=== PATIENT | male | born 1950 | race Caucasian/White ===

== ENCOUNTER 2018-10-15 11:10 | Outpatient (CLI) | payer MEDICARE, BC ==
--- NOTE | 2018-10-15 12:16 | RAD ---
TWO VIEWS CHEST: Comparison: 09-03-18 History: Dyspnea. FINDINGS: Two views of the chest show normal sized cardiomediastinal silhouette. There is no evidence of consol idation, mass, or pleural effusion. Degenerative changes are seen in the spine. IMPRESSION: No evidence of acute cardiopulmonary disease. POS: [facility]
== END 2018-10-15 11:11 | disposition home or self-care (01) ==
LOC: RAD 11:10
PROVIDERS: ATTEND Internal Medicine Critical Care Medicine
DX: R06.00 Dyspnea, unspecified (principal)
CPT/HCPCS: 71046

== ENCOUNTER 2019-02-19 08:55 | Outpatient (CLI) | payer MEDICARE, BC | END 2019-02-19 08:56 | disposition home or self-care (01) | LOC: CP 08:55 | PROVIDERS: ATTEND Internal Medicine Critical Care Medicine | DX: J44.9 Chronic obstructive pulmonary disease, unspecified (principal) | CPT/HCPCS: 94060; 94727; 94729 ==

== ENCOUNTER 2019-04-22 10:03 | Day surgery (SDC) | payer MEDICARE, BC ==
[2019-04-22] MEDS ORDERED: Lidocaine 1% PF 5 ML VIAL ONE ×2 (10:40→11:17)
[2019-04-22] MEDS ORDERED: PROPOFOL 200 MG/20 ML VIAL ONE (11:17)
[2019-04-22] MEDS ORDERED: ePHEDrine 50 MG/ML VIAL ONE (11:17)
[2019-04-22] MEDS ORDERED: Ondansetron PF 4 MG/2 ML Vial ONE (11:17)
[2019-04-22] MEDS ORDERED: Dexamethasone 20 MG/5 ML VIAL ONE (11:17)
--- NOTE | 2019-04-22 11:27 | RAD ---
XR Finger(s) Lt Min 2 View HISTORY: Injury to little finger. COMPARISON: None. FINDINGS: There is a small avulsion fracture along the more radial and volar side of the base of the distal phalanx of the little finger. IMPRESSION: Small avulsion fracture of base of distal phalanx.
[2019-04-22] MEDS ORDERED: CEFAZOLIN 1 GM VIAL ONE (12:14)
[2019-04-22 13:14] LABS: #Basophils 0.1 thou/uL (0.0-0.2); #Eosinphils 0.1 thou/uL (0.0-0.7); #Lymphocytes 1.9 thou/uL (1.20-3.40); #Monocytes 0.5 thou/uL (0.11-0.59); #Neutrophils 5.2 thou/uL (1.40-6.50); %Basophils 0.8 % (0.0-1.0); %Eosinophils 1.4 % (0.0-10.0); %Lymphocytes 24.4 % (21.0-51.0); %Monocytes 5.9 % (0.0-10.0); %Neutrophils 67.5 % (42.0-75.0); Hemoglobin 15.5 g/dL (14.0-18.0); Mean Corpuscular HGB CONC 32.8 g/dL (32.0-36.0); Mean Corpuscular Hemoglobin 29.3 pg (27.0-31.0); Mean Corpuscular Volume 89.4 fL (78.0-98.0); Platelet Count 241 thou/uL (130-400); RBC Distribution Width 13.2 % (11.5-14.5); Red Blood Cell (RBC) Count 5.28 mill/uL (4.70-6.10); White Blood Cell (WBC) Count 7.8 thou/uL (4.8-10.8)
[2019-04-22 13:25] LABS: ALT (SGPT) 19 U/L (8-55); AST (SGOT) 13 U/L (5-34); Albumin 4.3 g/dL (3.4-4.8); Alkaline Phosphatase 64 U/L (40-110); Anion Gap 16 mmol/L (10-20); BUN (Urea Nitrogen) 14 mg/dL (8.4-25.7); Bilirubin, Total 0.3 mg/dL (0.2-1.2); Calc. Creatinine Clearance 0 mL/min (70-130); Calcium 9.5 mg/dL (7.8-10.44); Carbon Dioxide 22 mmol/L (23-31); Chloride 103 mmol/L (98-107); Estimated GFR-MDRD 67; Globulin 3.2 g/dL (2.4-3.5); Glucose 169 mg/dL (80-115); Potassium 4.2 mmol/L (3.5-5.1); Protein, Total 7.5 g/dL (5.8-8.1); Sodium 137 mmol/L (136-145)
[2019-04-22] MEDS ORDERED: Metoprolol Tartrate 5 MG/5 ML VIAL ONE ×2 (17:46→20:34)
[2019-04-22] MEDS ORDERED: Bacitracin Zinc Ointment 30 gm TUBE ONE (18:07)
[2019-04-22] MEDS ORDERED: Sodium Chloride 0.9% 10 ML ONE (18:07)
[2019-04-22] MEDS ORDERED: Bupivacaine PF 0.5% 30 ML VIAL ONE (18:07)
[2019-04-22] MEDS ORDERED: Betamet Acet/Betamet Na Ph 30 MG/5 ML VIAL ONE (18:07)
[2019-04-22] MEDS ORDERED: Sodium Chloride 0.9% 20 ML ONE (19:03)
[2019-04-22] MEDS ORDERED: Fentanyl 100 MCG/2 ML VIAL ONE (19:10)
--- NOTE | 2019-04-22 20:22 | RAD ---
XR Finger(s) Lt Min 2 View History: Pinning of left finger Comparison: Finger radiograph same day Findings: 2 spot fluoroscopic images were obtained from the operating room. Percutaneous pin placemen t through the distal interphalangeal joint small finger. Impression: Fluoroscopy for surgical use. Total fluoroscopy time: 13 seconds.
[2019-04-22] MEDS ORDERED: Ketorolac Tromethamine 30 MG/ML VIAL ONE (21:06)
--- NOTE | 2019-04-23 10:02 | OP ---
DATE OF PROCEDURE: 04/22/2019 COMPLICATIONS: None. TOURNIQUET TIME: 20 minutes. PREOPERATIVE DIAGNOSES: 1. open distal phalanx base fracture. 2. 1.0 cm laceration. POSTOPERATIVE DIAGNOSES: 1. open distal phalanx base fracture. 2. 1.0 cm laceration. 3. Intact neurovascular bundles x2, with neuroplasty and no direct communication seen with no violation of volar plate or collateral ligaments of the volar wound. COMPLICATIONS: None. PROCEDURES PERFORMED: 1. Debridement of material associated with open fracture of left small finger associated with open fracture, left small finger distal phalanx. 2. Small finger wound closure, 1.0 cm with debridement. 3. Open reduction with pinning, distal phalanx fracture. 4. Neuroplasty, digital nerves x2 under magnification. 5. C-arm. DESCRIPTION OF PROCEDURE: After successful anesthesia by [facility], the limb prepped and draped. We gave the patient a total of 20 mL of 0.5% Marcaine, 15 before the procedure and 5 after the procedure in metacarpophalangeal joint level block, left, small finger. We then exsanguinated the limb, inflated the tourniquet to 250 mmHg, extended the incision 1.0 cm distal and 1.5 cm proximal in Óscar-type fashion. This allowed us to do neuroplasty, explored the neurovascular bundle and found they were both intact bilaterally which confirmed the exam preop where he had intact 2-point discrimination, but we saw few granules of dirt on each end of the incision and space. We debrided this easily, and using combination of Williams blade, tenotomy scissors, large curette, small Crile, and Adsons, and this followed by the need for Pulsavac. The depth was down to include the volar plate, but we saw no violation of the visible bone itself and flexor tendon was intact. After the irrigation particles were removed, we then prepared the wound by debriding the edges of the wound to open incision at its distal base and its proximal base to the point of approximately 0.5 mm with tenotomy scissors. Now there was no debris seen under magnification. We irrigated last with additional 1 L normal saline, this time with bulb syringe with antibiotics inside, released the tourniquet and obtained hemostasis. Then, as the A1 aldo and flexor tendon were intact, we did not have to do flexor tendon repair or an extensor repair but we did pin the fracture under C-arm supervision in antegrade fashion with appropriate amount of accuracy. Wire was obliquely passed across from proximal to distal and was in excellent position, frontal saggital plane, and fracture was totally mobilized and being anatomic, the joint was free to move 45 degrees passing flexor. At this point, the tourniquet had been released. We then obtained hemostasis, loosely approximated the 1 cm wound, which was 1 incision in center and closed to appropriate specification of the incision we made. The patient then had a bulky dressing applied after giving last 5 mL metacarpophalangeal joint block level at small finger, and he left the operating room in a bulky dressing with a dorsal splint including the ring or small finger. No evidence of anesthetic or operative complications. Job ID: [id number]
== END 2019-04-22 21:57 | disposition home or self-care (01) ==
LOC: SCSER 10:03 → SDC 15:00 → SDC/OP 17:37
PROVIDERS: ATTEND Orthopaedic Surgery Hand Surgery
PROC: 0PSV04Z Reposition Left Finger Phalanx with Internal Fixation Device, Open Approach (ICD-10-PCS; principal; 2019-04-22)
DX: S62.637B Displaced fracture of distal phalanx of left little finger, initial encounter for open fracture (principal); I25.10 Atherosclerotic heart disease of native coronary artery without angina pectoris; E11.9 Type 2 diabetes mellitus without complications; F17.210 Nicotine dependence, cigarettes, uncomplicated; Z79.02 Long term (current) use of antithrombotics/antiplatelets; Z79.84 Long term (current) use of oral hypoglycemic drugs; Z79.899 Other long term (current) drug therapy; Z95.5 Presence of coronary angioplasty implant and graft; W23.1XXA Caught, crushed, jammed, or pinched between stationary objects, initial encounter
CPT/HCPCS: 36415; 76000; 80053; 85025; 85610; 93005; J0690; J0702; J1885; J2001; J3010; J3490; S0020

== ENCOUNTER 2019-10-20 15:21 | Outpatient (CLI) | payer MEDICARE, BC ==
--- NOTE | 2019-10-20 15:55 | RAD ---
TWO VIEWS LUMBOSACRAL SPINE: COMPARISON: None. HISTORY: Low back pain on the right side for 3 weeks. FINDINGS: Two views of the lumbosacral spine show normal height and alignment of the vertebral bodies and inter vertebral disks without fracture or subluxation. Moderate posterior facet arthrosis is seen in the l ower lumbosacral spine. Small osteophytes are seen surrounding L3-4. IMPRESSION: Degenerative changes of the lumbar spine without acute osseous abnormality. POS: [facility]
--- NOTE | 2019-10-20 15:56 | RAD ---
THREE VIEWS OF THE SACROILIAC JOINTS: COMPARISON: None. HISTORY: Right low back pain for 3 weeks. FINDINGS: Three views of the sacroiliac joints show a symmetric appearance of the sacroiliac joints. No erosio ns are seen. No significant fusion of the sacroiliac joints is seen. IMPRESSION: Unremarkable exam. POS: [facility]
== END 2019-10-20 15:22 | disposition home or self-care (01) ==
LOC: BICRAD 15:21
PROVIDERS: ATTEND Family Medicine
DX: M54.5 Low back pain (principal); M47.816 Spondylosis without myelopathy or radiculopathy, lumbar region
CPT/HCPCS: 72100; 72202; 80053; 81001; 82306; 83036; 84550; G0103; 36415

== ENCOUNTER 2019-10-21 13:38 | Outpatient (CLI) | payer MEDICARE, BC ==
--- NOTE | 2019-10-21 14:12 | RAD ---
Exam: 1 VIEW ABDOMEN HISTORY: Pain. FINDINGS: Nonspecific bowel gas pattern. Scattered fecal material in a nondistended, nondilated colon. No evide nce of pneumoperitoneum on this supine projection. If there is concern for acute pathology, consider abdomen and pelvic CT with oral and IV contrast. IMPRESSION: Nonspecific bowel gas pattern. Transcribed Date/Time: 10/21/2019 2:39 PM
--- NOTE | 2019-10-21 14:17 | ULT ---
EXAM: US Abdominal CLINICAL HISTORY: Right flank pain. COMPARISON: None. FINDINGS: Pancreas: Obscured by bowel gas IVC: Visualized IVC has a normal caliber. Aorta: Visualized aorta is prominent. The distal aorta measures 3.8 cm in short axis. Liver:Heterogeneous echotexture which limits evaluation for hepatic masses and intrahepatic biliary d ilatation. The contour of the hepatic margin is maintained. Gallbladder: Nonvisualized gallbladder. Gallbladder is presumed to be surgically absent. Correlate [facility] surgical historyy. There do appear to be surgical clips in the right upper quadrant on radiograph performed on 10/21/2019. Riley's sign:Not applicable CBD: Common bile duct diameter is 1.0 cm. Dilatation of the common bile duct is presumed to be reserv oir effect from previous cholecystectomy. Portal vein: Patent. Appropriate directional flow. Right kidney: Normal cortical echotexture. No hydronephrosis. Right kidney measuring 12.4 x 5.8 x 5. 8 cm in length. Left kidney: Normal cortical echotexture. No hydronephrosis. Hypoechoic focus in the mid pole of the left kidney measures 1.4 x 1.4 x 1.7 cm. . Left kidney measuring 5.7 x 11.8 x 5.5 cm in length Spleen: Normal echotexture, measuring 13 cm IMPRESSION: 1. Mild splenomegaly. 2. Increased echotexture of liver, limiting evaluation. If there is concern for hepatic pathology, co nsider CT or MRI. 3. Aneurysmal dilatation of the visualized distal abdominal aorta. 4. Presumed surgically absent gallbladder. Dilatation of the common bile duct, likely due to reservoi r effect. Transcribed Date/Time: 10/21/2019 2:42 PM
== END 2019-10-21 13:39 | disposition home or self-care (01) ==
LOC: BICULT 13:38
PROVIDERS: ATTEND Family Medicine
DX: R10.9 Unspecified abdominal pain (principal); R16.1 Splenomegaly, not elsewhere classified; I71.4 Abdominal aortic aneurysm, without rupture; K83.8 Other specified diseases of biliary tract
CPT/HCPCS: 74018; 93975

== ENCOUNTER 2020-05-10 14:55 | Outpatient (CLI) | payer MEDICARE, BC ==
--- NOTE | 2020-05-10 16:09 | ULT ---
Arterial duplex sonogram HISTORY: Vascular disease. Claudication. FINDINGS: Good color and spectral Doppler flow. Right: Scattered plaque. No abnormally elevated peak systolic velocities. Biphasic waveform within th e common femoral and deep femoral, femoral, popliteal, anterior tibial, and posterior tibial arteries. Left: Atherosclerotic plaque. No abnormally elevated peak systolic velocities. Triphasic waveform wit hin the common femoral and deep femoral arteries. Monophasic flow within the femoral artery, popliteal, anterior tibial, posterior tibial, and dorsalis pedis arteries. IMPRESSION : Atherosclerosis. Dampened pulsatilities within each lower extremity, especially beyond the left common femoral artery, suggest significant arterial stenosis. Conventional or CT arteriography could be used for better characterization.
== END 2020-05-10 14:56 | disposition home or self-care (01) ==
LOC: BICULT 14:55
PROVIDERS: ATTEND Family Medicine
DX: I73.9 Peripheral vascular disease, unspecified (principal); I70.0 Atherosclerosis of aorta; R09.89 Other specified symptoms and signs involving the circulatory and respiratory systems
CPT/HCPCS: 93923

== ENCOUNTER 2020-08-31 07:33 | Emergency (ER) | payer MEDICARE, BC ==
--- NOTE | 2020-08-31 08:46 | RAD ---
XR Chest Pa Lat STANDARD HISTORY: Fall with chest pain. COMPARISON: 08/03/2008 study FINDINGS: Heart size within normal limits. There are atherosclerotic changes within a tortuous aorta. The lungs are clear of any infiltrative process. No rib fractures are identified or evidence of pneumothorax.. IMPRESSION: No active intrathoracic disease.
[2020-08-31] MEDS ORDERED: Ketorolac Tromethamine 30 MG/ML VIAL ONE (09:22)
[2020-08-31] MEDS ORDERED: HYDROcodone/Acetaminophen 5/325 mg Tablet ONE (09:22)
== END 2020-08-31 09:57 | disposition home or self-care (01) ==
LOC: ERS 07:33
DX: S20.212A Contusion of left front wall of thorax, initial encounter (principal); F17.210 Nicotine dependence, cigarettes, uncomplicated; W00.0XXA Fall on same level due to ice and snow, initial encounter
CPT/HCPCS: 71046; 96372; J1885

== ENCOUNTER 2020-09-10 15:17 | Outpatient (CLI) | payer MEDICARE, BC ==
[2020-09-10 17:52] LABS: Estimated GFR-MDRD - POC Greater than 90
--- NOTE | 2020-09-10 18:02 | RAD ---
LUMBAR SPINE TWO VIEWS: 09/10/20 INDICATIONS: Acute left sided back pain. COMPARISON: Prior abdominal ultrasound dated 10/21/19. FINDINGS: There is mild multilevel disc degenerative disease. There is moderate multilevel facet osteoarthrosis . No acute fracture is evident. There is an infrarenal abdominal aortic aneurysm on the lateral proje ction measuring up to 5.9 cm. This previously measured up to 3.8 cm on the prior ultrasound. There ar e surgical clips within the right upper quadrant. There are scattered vascular calcifications. IMPRESSION: 1. No acute osseous abnormality demonstrated. 2. Moderate lumbar spondylosis. 3. Infrarenal abdominal aortic aneurysm that measures 5.9 cm on the radiograph but on an abdomin al ultrasound in 10/21/19 measured up to 3.8 cm. Some of the increase in the size on the current radiog raph may be due to magnification and positioning of the patient on the exam. As a conservative measur e would recommend a follow-up CTA of the abdomen and pelvis utilizing IV contrast. If the patient can not tolerate IV contrast, noncontrast CT of the abdomen and pelvis would suffice. 4. Findings were called to Dr. Champion at 3:46 p.m. on 09/10/20. Code CR POS: [facility]
--- NOTE | 2020-09-10 19:07 | CT ---
Exam: CT angiogram of the abdomen CT angiogram of the pelvis History: Low back pain with left-sided sciatica. Recent fall. Infrarenal aneurysm noted on recent lum bar spine radiograph. TECHNIQUE: CT angiogram of the abdomen and pelvis are performed in the axial plane. Three-dimensional reformatted images are submitted for interpretation FINDINGS: Abdomen CT: Scarring and atelectasis in the lung bases Heart size is upper normal. No significant pericardial fluid. Pneumobilia is identified. Based on the arterial phase images, there is appropriate enhancement of the spleen, pancreas and righ t adrenal gland. There is fullness of the left adrenal gland, measuring 1.9 x 1.1 cm with an attenuation coefficient of 33 Hounsfield units. There is enhancing focus in the posterior segment of the right hepatic lobe likely representing flash filling hemangioma. Evaluation is incomplete. Symmetric enhancement of the kidneys. No evidence of obstructive uropathy. There is scarring and mai l cortical thinning in the lower pole the right kidney. No gastrohepatic, retrocrural or periportal lymphadenopathy No mesenteric mass, lymphadenopathy, free air or free fluid Limited evaluation of the alimentary canal by the absence of oral contrast. No evidence of a bowel ob struction. There is evidence of previous surgery with multiple suture chains throughout the alimentary canal. Normal caliber appendix. Occasional diverticulum. No evidence of diverticulitis. Lo oks like a segment of the stomach has been used to anastomosis the region of the descending colon. Correlate with surgical history. Pelvic CT: Moderately distended urinary bladder. Mildly enlarged prostate gland. No pelvic mass, lymp hadenopathy, free air or free fluid There are no lytic or blastic lesions in the osseous structures CT ANGIOGRAM: There is atherosclerosis involving a slightly ectatic descending thoracic aorta. There is calcified and noncalcified plaque throughout the visualized aorta. There are ulcerations involving the distal thoracic aorta and suprarenal abdominal aorta. There is eccentric thrombus with mild stenosis of the suprarenal abdominal aorta just inferior to the origin of the superior mesenteric artery. There is aneurysmal dilatation of the infrarenal abdominal aorta measuring 3.9 x 4 .1 cm. There is atherosclerosis in the visualized bilateral common iliac, internal iliac and external iliac arteries. There is atherosclerosis without evidence of high-grade stenosis at the orig in of the celiac artery. There is atherosclerosis with mild stenosis involving the origin of the superior mesenteric artery. There is atherosclerosis with mild stenosis involving the solitary right and solitary left renal arteries. Inferior mesenteric artery is patent. IMPRESSION: 1. Atherosclerosis throughout the visualized aorta. There is additional atherosclerosis involving the abdominal vasculature. 2. Aneurysmal dilatation of the infrarenal abdominal aorta. 2. Postsurgical changes in the alimentary canal as described above. Correlate with surgical history 4. Enhancing foci in the liver which are presumed to represent flash filling hemangiomas. Comparison with prior imaging would be beneficial. Conversely, abdomen MRI can be performed. There is also asymmetric fullness of the left adrenal gland which can be evaluated with prior imaging and or abdome n MRI. 5. Atheromatous ulcerations involving the distal thoracic aorta and suprarenal abdominal aorta. There is short segment mild stenosis secondary to eccentric thrombus in the suprarenal abdominal aorta. Transcribed Date/Time: 09/10/2020 7:25 PM
== END 2020-09-10 15:18 | disposition home or self-care (01) ==
LOC: BICRAD 15:17
PROVIDERS: ATTEND Family Medicine
DX: M54.42 Lumbago with sciatica, left side (principal); I71.4 Abdominal aortic aneurysm, without rupture; I70.0 Atherosclerosis of aorta; R93.2 Abnormal findings on diagnostic imaging of liver and biliary tract; M47.816 Spondylosis without myelopathy or radiculopathy, lumbar region
CPT/HCPCS: 72100; 74174; 82565

== ENCOUNTER 2020-09-20 14:41 | Outpatient (CLI) | payer MEDICARE, BC | END 2020-09-20 14:42 | disposition home or self-care (01) | LOC: BICCT 14:41 | PROVIDERS: ATTEND Family Medicine | DX: Z12.2 Encounter for screening for malignant neoplasm of respiratory organs (principal); F17.210 Nicotine dependence, cigarettes, uncomplicated; J44.9 Chronic obstructive pulmonary disease, unspecified; J98.4 Other disorders of lung; J92.9 Pleural plaque without asbestos; I25.10 Atherosclerotic heart disease of native coronary artery without angina pectoris; K83.8 Other specified diseases of biliary tract; J98.09 Other diseases of bronchus, not elsewhere classified; I70.0 Atherosclerosis of aorta | CPT/HCPCS: 71271 ==

== ENCOUNTER 2020-09-29 13:04 | Outpatient (CLI) | payer MEDICARE, BC | END 2020-09-29 13:05 | disposition home or self-care (01) | LOC: BICMRI 13:04 | PROVIDERS: ATTEND Family Medicine | DX: M54.6 Pain in thoracic spine (principal); I71.4 Abdominal aortic aneurysm, without rupture; M47.816 Spondylosis without myelopathy or radiculopathy, lumbar region | CPT/HCPCS: 72148 ==

== ENCOUNTER 2020-10-04 15:13 | Outpatient (CLI) | payer MEDICARE, BC ==
[2020-10-05 04:20] LABS: SARS-CoV-2 PCR by NAA Not Detected (NotDetected)
== END 2020-10-04 15:14 | disposition home or self-care (01) ==
LOC: LABBT 15:13
PROVIDERS: ATTEND Internal Medicine Gastroenterology
DX: R10.32 Left lower quadrant pain (principal); K21.9 Gastro-esophageal reflux disease without esophagitis; R68.81 Early satiety; R63.4 Abnormal weight loss; Z85.038 Personal history of other malignant neoplasm of large intestine; Z20.822 Contact with and (suspected) exposure to COVID-19
CPT/HCPCS: U0003; U0005; 87635

== ENCOUNTER 2020-10-07 08:07 | Day surgery (SDC) | payer MEDICARE, BC ==
[2020-10-06 08:44] VITALS: BMI 28.5
== END 2020-10-07 11:33 | disposition home or self-care (01) ==
LOC: SDC 08:07
PROVIDERS: ATTEND Internal Medicine Gastroenterology
PROC: 0DJ08ZZ Inspection of Upper Intestinal Tract, Via Natural or Artificial Opening Endoscopic (ICD-10-PCS; principal; 2020-10-07)
PROC: 0DJD8ZZ Inspection of Lower Intestinal Tract, Via Natural or Artificial Opening Endoscopic (ICD-10-PCS; 2020-10-07)
DX: R10.32 Left lower quadrant pain (principal); R63.4 Abnormal weight loss; R68.81 Early satiety; K21.9 Gastro-esophageal reflux disease without esophagitis; K44.9 Diaphragmatic hernia without obstruction or gangrene; E11.9 Type 2 diabetes mellitus without complications; I10 Essential (primary) hypertension; E78.00 Pure hypercholesterolemia, unspecified; F17.200 Nicotine dependence, unspecified, uncomplicated; Z68.28 Body mass index [BMI] 28.0-28.9, adult; Z85.038 Personal history of other malignant neoplasm of large intestine; Z79.02 Long term (current) use of antithrombotics/antiplatelets; Z79.4 Long term (current) use of insulin; Z79.899 Other long term (current) drug therapy; Z95.5 Presence of coronary angioplasty implant and graft